=== PATIENT | male | born 1995 | race Two or more races ===

== ENCOUNTER 2025-05-01 17:59 | Emergency (ER) | payer SELFPAY ==
--- NOTE | ~2025-05-01 | CT_ITS ---
CT brain wo con HISTORY:dizziness COMPARISON: None. TECHNIQUE: Axial images were obtained of the head without intravenous contrast. FINDINGS: No acute intracranial hemorrhage, mass effect or midline shift. No extra-axial fluid collections. The calvarium is intact. Visualized paranasal sinuses and mastoid air cells are clear. IMPRESSION: No acute intracranial hemorrhage or extra axial fluid collections. All CT scans at this facility are performed using low dose modulation techniques as appropriate to perform exam including the following: automated exposure control; use of iterative reconstruction technique; adjustment of the mA and/or kV according to patient size (this includes techniques or standardized protocols for targeted exams where dose is matched to indication/reason for exam). Reviewed, dictated and finalized at location S. IMPRESSION: No acute intracranial hemorrhage or extra axial fluid collections. All CT scans at this facility are performed using low dose modulation techniqu es as appropriate to perform exam including the following: automated exposure c ontrol; use of iterative reconstruction technique; adjustment of the mA and/or kV according to patient size (this includes techniques or standardized protocol s for targeted exams where dose is matched to indication/reason for exam).
[2025-05-01 18:08] VITALS: BP 132/72; PULSE 76; RESP 16; TEMP 36.4; O2SAT 97
--- NOTE | 2025-05-01 18:10 | ED_ITS ---
HPI - Dizziness General Chief Complaint: Dizziness <Carlyle Kurtz APRN - Last Filed: 05/01/25 18:12> Stated Complaint: headache <Carlyle Kurtz APRN - Last Filed: 05/01/25 18:12> Time Seen by Provider: 05/01/25 18:10 <Carlyle Kurtz APRN - Last Filed: 05/01/25 18:12> Focused HPI: Salomón is a 29-year-old male patient presenting to the ER today with complaints of dizziness x 2 days. He reports he felt dizzy yesterday room was spinning and fell down denies hitting his head or any injury when he fell. States this also happened again today while he was at work. He denies any nausea, vomiting, chest pain, shortness of breath, headache, or any visual changes. He does were glasses. Denies any EtOH or recreational drug use. Has never had dizziness before. GENERAL: Well-appearing, well-nourished, and in no acute distress. HEAD: Normocephalic, atraumatic. CHEST: Clear to auscultation. No respiratory distress. HEART: Regular rate and rhythm. NEURO: Alert and oriented x3. Patient screened in triage and initial orders placed. Additional care and disposition to be based upon diagnostic testing and treatment. <Carlyle Kurtz APRN - Last Filed: 05/01/25 18:12> Source: patient <Carlyle Kurtz APRN - Last Filed: 05/01/25 18:12> Mode of arrival: ambulatory <Carlyle Kurtz APRN - Last Filed: 05/01/25 18:12> Limitations: no limitations <Carlyle Kurtz APRN - Last Filed: 05/01/25 18:12> Related Data Allergies/Adverse Reactions: Allergies Allergy/AdvReac Type Severity Reaction Status Date / Time No Known Allergies Allergy Verified 05/01/25 18:00 <Carlyle Kurtz APRN - Last Filed: 05/01/25 18:12> Review of Systems 2 Review of Systems: All systems reviewed & are unremarkable except as noted in HPI and below <Julieta Mabry, ANIMAL TREATMENT INVESTIGATOR - Last Filed: 05/01/25 23:46> Exam 2 Narrative: GENERAL: Well appearing, well-nourished, non-toxic, in no acute distress. HEAD: Normocephalic, atraumatic. NECK: Supple. No adenopathy, no masses. RESPIRATORY: Airway patent, respirations nonlabored. Clear to auscultation bilaterally, no rales, rhonchi, wheezing. CARDIOVASCULAR: Regular rate and rhythm without murmurs, rubs, or gallops. Peripheral pulses 2+ and equal bilaterally. ABDOMINAL: Soft, nontender, nondistended, no hepatosplenomegaly. Normoactive BS. MUSCULOSKELETAL: Moves all extremities. Strength/ROM intact without gross deformities. SKIN: Warm, dry, normal color. No rashes. NEURO: A&O X3. Speech clear. Cranial nerves II-XII intact. No ataxic movements. PSYCHIATRIC: Appropriate mood and affect. Normal interaction. <Julieta Mabry, ANIMAL TREATMENT INVESTIGATOR - Last Filed: 05/01/25 23:46> Course Vital Signs Vital signs: Vital Signs Temperature 36.4 C 05/01/25 18:08 Pulse Rate 76 05/01/25 18:08 Respiratory Rate 16 05/01/25 18:08 Blood Pressure 132/72 05/01/25 18:08 Pulse Oximetry 97 05/01/25 18:08 Oxygen Delivery Room Air 05/01/25 18:08 Temperature 36.4 C 05/01/25 18:08 Pulse Rate 89 05/01/25 21:51 Respiratory Rate 16 05/01/25 18:08 Blood Pressure 164/98 H 05/01/25 21:51 Pulse Oximetry 97 05/01/25 18:08 Oxygen Delivery Room Air 05/01/25 18:08 <Carlyle Kurtz, ANIMAL TREATMENT INVESTIGATOR - Last Filed: 05/01/25 18:12> Vital Signs Temperature 36.4 C 05/01/25 18:08 Pulse Rate 76 05/01/25 18:08 Respiratory Rate 16 05/01/25 18:08 Blood Pressure 132/72 05/01/25 18:08 Pulse Oximetry 97 05/01/25 18:08 Oxygen Delivery Room Air 05/01/25 18:08 Temperature 36.4 C 05/01/25 18:08 Pulse Rate 89 05/01/25 21:51 Respiratory Rate 16 05/01/25 18:08 Blood Pressure 164/98 H 05/01/25 21:51 Pulse Oximetry 97 05/01/25 18:08 Oxygen Delivery Room Air 05/01/25 18:08 <Julieta Mabry APRN - Last Filed: 05/01/25 23:46> MDM - Dizziness MDM Narrative Medical decision making narrative: Salomón is a 29-year-old male patient presenting to the ER today with complaints of dizziness x 2 days. He reports he felt dizzy yesterday room was spinning and fell down denies hitting his head or any injury when he fell. States this also happened again today while he was at work. He denies any nausea, vomiting, chest pain, shortness of breath, headache, or any visual changes. He does were glasses. Denies any EtOH or recreational drug use. Has never had dizziness before. Labs Ordered: CBC, CMP, UA Imaging Ordered: CT brain Medications Ordered: meclizine p.o. Results: Patient's CBC indicates white blood cell count 11.6 and platelet count of 468. His CMP indicates a carbon dioxide of 32, glucose of 120, ALT of 68, total protein of 8.9. Patient's urinalysis indicates 1+ protein, trace ketones, trace leukocytes, 3-5 RBCs. Diagnosis: vertigo Consults: ENT (outpatient) Patient Education/Shared MDM: Results of lab work and imaging shared with patient. He endorses improvement of symptoms following medication administration. Patient strongly advised to maintain hydration status upon discharge and follow-up with his PCP as soon as possible. If his symptoms do not improve he can follow-up with ENT. He will be discharged home with a prescription for Meclizine. Strict return precautions provided. Patient verbalized understanding and is in agreement with plan. Vital signs stable at time of discharge. All questions answered. <Julieta Mabry APRN - Last Filed: 05/01/25 23:46> Differential Diagnosis Differential diagnosis: Likely benign paroxysmal positional vertigo, orthostatic hypotension and transient cerebral ischemia <Julieta Mabry APRN - Last Filed: 05/01/25 23:46> Lab Data Attestation: I reviewed the patient's lab results. <Julieta Mabry APRN - Last Filed: 05/01/25 23:46> Result diagrams: 05/01/25 20:40 05/01/25 20:40 <Carlyleyogesh Kurtz, ANIMAL TREATMENT INVESTIGATOR - Last Filed: 05/01/25 18:12> Labs: Lab Results 05/01/25 05/01/25 Range/Units 20:40 21:36 WBC 11.6 H (4.5-10.0) K/mm3 RBC 5.18 (4.6-6.20) M/mm3 Hgb 15.2 (14.0-18.0) g/dL Hct 44.6 (42.0-52.0) % MCV 86.1 (80-100) fl MCH 29.3 (26-34) pg MCHC 34.1 (32-36) g/dl RDW 13.5 (11.5-14.5) % Plt Count 468 H (150-375) k/mm3 MPV 9.6 (7.4-10.4) fl Immature Gran % (Auto) 0.3 (0-0.5) % Neut % (Auto) 69.5 (45.5-73.1) % Lymph % (Auto) 23.7 (18.3-44.2) % [place] % (Auto) 5.7 (2.6-8.5) % Eos % (Auto) 0.3 (0-4.4) % Baso % (Auto) 0.5 (0.2-1.2) % Lymph # (Auto) 2.75 (0.9-3.2) K/mm3 [place] # (Auto) 0.7 H (0.1-0.6) K/mm3 Eos # (Auto) 0.0 (0-0.3) K/mm3 Baso # (Auto) 0.1 (0.0-0.1) K/mm3 Abs Immat Gran (auto) 0.03 (0.00-0.031) K/mm3 Absolute Neuts (auto) 8.1 H (1.3-6.7) K/mm3 Absolute Nucleated RBC 0.000 (0.0-0.012) K/mm3 Nucleated RBC % 0.0 (0.0-0.2) % Sodium 142 (137-145) mmol/L Potassium 3.9 (3.4-5.0) mmol/L Chloride 99 (98-107) mmol/L Carbon Dioxide 32 H (22-30) mmol/L Anion Gap 11 (4-12) mmol/L BUN 13 (9-20) mg/dL Creatinine 0.79 (0.7-1.3) mg/dL Estim Creat Clear Calc 136 ml/min Estimated GFR > 60 (59 - ) Glucose 120 H (65-110) mg/dL Calcium 9.4 (8.4-10.2) mg/dL Total Bilirubin 0.7 (0.2-1.3) mg/dL AST 39 (17-59) U/L ALT 68 H (6-50) U/L Alkaline Phosphatase 89 (38-126) U/L Total Protein 8.9 H (6.3-8.2) g/dL Albumin 4.7 (3.5-5.1) g/dL Urine Color Dark yellow (Yellow) Urine Appearance Clear (Clear) Urine pH 7.0 (5.0-9.0) Ur Specific [place] 1.034 (1.001-1.035) Urine Protein 1+ H (Negative) mg/dL Urine Glucose (UA) Negative (Negative) mg/dL Urine Ketones Trace H (Negative) mg/dL Ur Blood (Man) Negative (Negative) Urine Nitrate Negative (Negative) Urine Bilirubin Negative (Negative) Urine Urobilinogen 1.0 (<2.0) mg/dL Leukocyte Esterase Rfl Trace H (Negative) KETTY/UL Urine RBC 3-5 H (0-2) /hpf Urine WBC 0-5 (0-3) /hpf Ur Squamous Epith Cells None seen (Few) /hpf Urine Bacteria None seen /hpf Urine Casts 0-2 <Carlyle Kurtz, ANIMAL TREATMENT INVESTIGATOR - Last Filed: 05/01/25 18:12> Lab Results 05/01/25 05/01/25 Range/Units 20:40 21:36 WBC 11.6 H (4.5-10.0) K/mm3 RBC 5.18 (4.6-6.20) M/mm3 Hgb 15.2 (14.0-18.0) g/dL Hct 44.6 (42.0-52.0) % MCV 86.1 (80-100) fl MCH 29.3 (26-34) pg MCHC 34.1 (32-36) g/dl RDW 13.5 (11.5-14.5) % Plt Count 468 H (150-375) k/mm3 MPV 9.6 (7.4-10.4) fl Immature Gran % (Auto) 0.3 (0-0.5) % Neut % (Auto) 69.5 (45.5-73.1) % Lymph % (Auto) 23.7 (18.3-44.2) % [place] % (Auto) 5.7 (2.6-8.5) % Eos % (Auto) 0.3 (0-4.4) % Baso % (Auto) 0.5 (0.2-1.2) % Lymph # (Auto) 2.75 (0.9-3.2) K/mm3 [place] # (Auto) 0.7 H (0.1-0.6) K/mm3 Eos # (Auto) 0.0 (0-0.3) K/mm3 Baso # (Auto) 0.1 (0.0-0.1) K/mm3 Abs Immat Gran (auto) 0.03 (0.00-0.031) K/mm3 Absolute Neuts (auto) 8.1 H (1.3-6.7) K/mm3 Absolute Nucleated RBC 0.000 (0.0-0.012) K/mm3 Nucleated RBC % 0.0 (0.0-0.2) % Sodium 142 (137-145) mmol/L Potassium 3.9 (3.4-5.0) mmol/L Chloride 99 (98-107) mmol/L Carbon Dioxide 32 H (22-30) mmol/L Anion Gap 11 (4-12) mmol/L BUN 13 (9-20) mg/dL Creatinine 0.79 (0.7-1.3) mg/dL Estim Creat Clear Calc 136 ml/min Estimated GFR > 60 (59 - ) Glucose 120 H (65-110) mg/dL Calcium 9.4 (8.4-10.2) mg/dL Total Bilirubin 0.7 (0.2-1.3) mg/dL AST 39 (17-59) U/L ALT 68 H (6-50) U/L Alkaline Phosphatase 89 (38-126) U/L Total Protein 8.9 H (6.3-8.2) g/dL Albumin 4.7 (3.5-5.1) g/dL Urine Color Dark yellow (Yellow) Urine Appearance Clear (Clear) Urine pH 7.0 (5.0-9.0) Ur Specific [place] 1.034 (1.001-1.035) Urine Protein 1+ H (Negative) mg/dL Urine Glucose (UA) Negative (Negative) mg/dL Urine Ketones Trace H (Negative) mg/dL Ur Blood (Man) Negative (Negative) Urine Nitrate Negative (Negative) Urine Bilirubin Negative (Negative) Urine Urobilinogen 1.0 (<2.0) mg/dL Leukocyte Esterase Rfl Trace H (Negative) KETTY/UL Urine RBC 3-5 H (0-2) /hpf Urine WBC 0-5 (0-3) /hpf Ur Squamous Epith Cells None seen (Few) /hpf Urine Bacteria None seen /hpf Urine Casts 0-2 <Julieta Mabry APRN - Last Filed: 05/01/25 23:46> Imaging Data Attestation: I personally reviewed and interpreted this imaging study as follows: < Julieta Mabry APRN - Last Filed: 05/01/25 23:46> Radiologist's impression: Impressions Head CT 05/01/25 19:05 IMPRESSION: No acute intracranial hemorrhage or extra axial fluid collections. All CT scans at this facility are performed using low dose modulation techniques as appropriate to perform exam including the following: automated exposure control; use of iterative reconstruction technique; adjustment of the mA and/or kV according to patient size (this includes techniques or standardized protocols for targeted exams where dose is matched to indication/reason for exam). <Julieta Mabry APRN - Last Filed: 05/01/25 23:46> Discharge Plan Discharge Clinical Impression: Benign paroxysmal positional vertigo <Carlyle Kurtz APRN - Last Filed: 05/01/25 18:12> Patient Disposition: Home <Carlyle Kurtz APRN - Last Filed: 05/01/25 18:12> Condition: Stable <Carlyle Kurtz APRN - Last Filed: 05/01/25 18:12> Instructions: Antibiotic Form, Benign Paroxysmal Positional Vertigo (ED) <Carlyle Kurtz APRN - Last Filed: 05/01/25 18:12> Additional Instructions: Please return to the ER with any worsening symptoms. Follow-up with primary care provider as soon as possible. if your symptoms persist you can follow-up with ear nose and throat. Please take meclizine as needed for dizziness. Remember to drink lots of water. <Carlyle Kurtz APRN - Last Filed: 05/01/25 18:12> Patient Language: Vietnamese <Carlyle Kurtz APRN - Last Filed: 05/01/25 18:12> Prescriptions: New meclizine 25 mg tablet 25 mg PO TID Qty: 30 0RF <Carlyle Kurtz APRN - Last Filed: 05/01/25 18:12> Follow-up/Referrals: Richard Bermeo MD [Physician, Ear, Nose, Throat] PHYSICIAN NOT ON STAFF,NONSTAFF [Primary Care Provider] <Carlyle Kurtz APRN - Last Filed: 05/01/25 18:12> Stand Alone Forms: Work/School Release IP <Carlyle Kurtz APRN - Last Filed: 05/01/25 18:12> Time of Disposition: 23:45 <Carlyle Kurtz APRN - Last Filed: 05/01/25 18:12> 23:45 <Julieta Mabry APRN - Last Filed: 05/01/25 23:46>
--- NOTE | 2025-05-01 18:12 | ECG_ITS ---
Test Date: 2025-05-01 20:39:51 Measurements Intervals [place] Rate: 69 P: 38 ND: 158 QRS: 27 QRSD: 101 T: 18 QT: 386 QTc: 414 Interpretive Statements SINUS RHYTHM NORMAL ECG No previous ECG available for comparison Electronically Signed On 05-01-2025 20:42:01 CDT by Orlando Holly D.O.
[2025-05-01 20:47] LABS: Hematocrit 44.6 % (42.0-52.0); Hemoglobin 15.2 g/dL (14.0-18.0); Immature Granulocyte Percent A 0.3 % (0-0.5); Lymphocytes Absolute Auto 2.75 K/mm3 (0.9-3.2); Mean Corpuscular HGB Conc 34.1 g/dl (32-36); Mean Corpuscular Hemoglobin 29.3 pg (26-34); Mean Corpuscular Volume 86.1 fl (80-100); Nucleated Red Blood Cells Absolute Auto 0.000 K/mm3 (0.0-0.012); Nucleated Red Blood Cells Perc 0.0 % (0.0-0.2); Platelet Count Result 468 k/mm3 (150-375); Red Blood Count 5.18 M/mm3 (4.6-6.20); White Blood Count 11.6 K/mm3 (4.5-10.0)
[2025-05-01 21:01] LABS: Alanine Aminotransferase 68 U/L (6-50); Albumin Level 4.7 g/dL (3.5-5.1); Alkaline Phosphatase 89 U/L (38-126); Anion Gap 11 mmol/L (4-12); Aspartate Amino Transferase 39 U/L (17-59); Bilirubin,Total 0.7 mg/dL (0.2-1.3); Blood Urea Nitrogen 13 mg/dL (9-20); Calcium 9.4 mg/dL (8.4-10.2); Carbon Dioxide 32 mmol/L (22-30); Chloride 99 mmol/L (98-107); Estimated CRCL calculation 136 ml/min; Estimated Glomerular Filt Rate > 60; Glucose 120 mg/dL (65-110); Potassium 3.9 mmol/L (3.4-5.0); Sodium 142 mmol/L (137-145); Total Protein 8.9 g/dL (6.3-8.2)
[2025-05-01 21:45] LABS: Add Urine Microscopic? YES; Appearance Urine Clear (Clear); Glucose Urine UA Negative (Negative); Leukocyte Esterase Ur Trace LEU/UL (Negative); Nitrate Urine Negative (Negative); Non Pathogenic Casts 0-2; Specific Grav Ur 1.034 (1.001-1.035)
[2025-05-01 21:50] VITALS: BP 134/80; PULSE 74
[2025-05-01 21:51] VITALS: BP 162/100; BP 164/98; PULSE 89; PULSE 99
[2025-05-01] MEDS: MECLIZINE HCL 25 MG TABLET PO (22:15)
[2025-05-01 23:00] VITALS: BP 121/70; PULSE 81; RESP 17; O2SAT 96
--- NOTE | 2025-05-01 23:01 | PC.NURSE ---
This RN received report from Lisa BARRETT.
[2025-05-02 00:06] VITALS: BP 121/70; PULSE 78; RESP 17; O2SAT 97
== END 2025-05-01 23:58 | disposition home or self-care (01) ==
PROVIDERS: Nurse Practitioner Family; Emergency Provider Registered Nurse
DX: H81.10 Benign paroxysmal vertigo, unspecified ear (principal)
CPT/HCPCS: 36415; 70450; 80053; 81001; 85025; 93005; 99284; A9270